=== PATIENT | male | born 1980 | race Caucasian/White ===

== ENCOUNTER → 2017-04-04 | Outpatient (CLI) | payer OTHER ==
--- NOTE | 2017-04-05 02:28 | REP ---
Clinical: Choking. Possible aspiration pneumonia . Technique: PA and lateral. Findings: The mediastinum and cardiac silhouette are normal. The lung henderson are clear and without acute consolidation, effusion, or pneumothorax. The skeletal structures are intact and normal. Impression: 1. No acute cardiopulmonary process. Signed by Valentín Gonzalez MD 04/05/2017 02:19 A
== END ==
LOC: M WUC 09:03
PROVIDERS: ATTEND Physician Assistant
DX: J20.9 Acute bronchitis, unspecified (principal)

== ENCOUNTER → 2019-05-01 | Outpatient (CLI) | payer OTHER ==
--- NOTE | 2019-05-01 13:55 | REP ---
MRI CERVICAL SPINE WITHOUT CONTRAST: HISTORY: Neck pain. Paresthesias. No comparison cervical spine imaging. TECHNIQUE: Sagittal and axial T1 and T2-weighted scans are acquired in the usual fashion with and without fat saturation. Sequences include spin echo, turbo spin-echo, and STIR imaging sequences. MRI FINDINGS: There is straightening of the normal cervical lordosis. Cortical and medullary bone signal intensity are normal. Vertebral body heights are preserved. Alignment is otherwise normal. Craniocervical junction is unremarkable. Cervical cord is normal in coarse, caliber, and signal intensity on T1- and T2-weighted scans. At the C6-7 disc level, there is disc space narrowing. There is a [id number] lobulated central and left posterior and left foraminal disc protrusion. This flattens the left ventral margin of the cord and produces left foraminal narrowing. There is early uncovertebral spurring. At C7-T1, there is no significant abnormality. At C5-6, there is mild left central disc bulging effacing the thecal sac but not contacting the spinal cord. At C4-5, there is mild diffuse disc bulging. At C3-4, there is left foraminal disc bulge and associated spurring producing left foraminal encroachment. The C2-3 level is unremarkable. IMPRESSION: Disc protrusions at C3-4 on the left and C6-7 on the left producing neural foraminal encroachment at each of these levels and at C6-7, the disc protrusion flattens the left ventral margin of the cord. Electronically Signed by Nathan Russo MD 05/01/2019 02:30 P
== END ==
LOC: M PLARAD 11:30
PROVIDERS: ATTEND Family Medicine
DX: M50.223 Other cervical disc displacement at C6-C7 level (principal); M50.21 Other cervical disc displacement, high cervical region